=== PATIENT | female | born 1970 | race Caucasian/White ===

== ENCOUNTER → 2018-06-01 | Outpatient (CLI) | payer BC ==
--- NOTE | 2018-06-03 13:05 | MM ---
Reason for exam: screening (asymptomatic). Last mammogram was performed 5 years and 9 months ago. History: Family history of breast cancer. Physical Findings: A clinical breast exam by your physician is recommended on an annual basis and results should be correlated with mammographic findings. MG 3D Screening Mammo W/Cad Bilateral CC and MLO view(s) were taken. Prior study comparison: August 24, 2012, bilateral digital screening mammo w/CAD. July 06, 2006, bilateral screening mammogram w/CAD. The breast tissue is heterogeneously dense. This may lower the sensitivity of mammography. Finding: There are coarse heterogeneous, grouped/clustered calcifications in the upper outer quadrant, middle position of the right breast, a few calcifications were present in 2012. New finding since August 24, 2012. ASSESSMENT: Incomplete: need additional imaging evaluation, BI-RAD 0 RECOMMENDATION: Special view mammogram of the right breast. [facility] will attempt to contact patient to return for supplemental views.
== END | disposition home or self-care (01) ==
LOC: RADMAMWWP 15:06
PROVIDERS: ATTEND Obstetrics & Gynecology
DX: Z12.31 Encounter for screening mammogram for malignant neoplasm of breast (principal)
CPT/HCPCS: 77063; 77067

== ENCOUNTER → 2018-06-15 | Outpatient (CLI) | payer BC ==
--- NOTE | 2018-06-16 10:55 | MM ---
Reason for exam: additional evaluation requested from abnormal screening. Last mammogram was performed less than 1 month ago. History: Family history of breast cancer. Physical Findings: Nurse did not find any significant physical abnormalities on exam. MG 3D Work Up W/Cad RT Spot compression CC, spot compression LM, and LM view(s) were taken of the right breast. Prior study comparison: June 01, 2018, bilateral MG 3d screening mammo w/cad. August 24, 2012, bilateral digital screening mammo w/CAD. The breast tissue is heterogeneously dense. This may lower the sensitivity of mammography. Finding: There are round, linear calcifications in the outer quadrant, middle position of the right breast 4cm from the nipple. ASSESSMENT: Suspicious, BI-RAD 4 RECOMMENDATION: Stereotactic core biopsy of the right breast. Called Dr. Nash with mammographic findings and has scheduled an appointment for the patient for 06/20/18 at 11:[address] Shultz. PRELIMINARY REPORT CALLED AND FAXED TO DR. SHULTZ ON 06/15/18.
== END | disposition home or self-care (01) ==
LOC: RADMAMWWP 15:00
PROVIDERS: ATTEND Obstetrics & Gynecology
DX: R92.8 Other abnormal and inconclusive findings on diagnostic imaging of breast (principal)
CPT/HCPCS: 77061; 77065

== ENCOUNTER → 2018-07-08 | Day surgery (SDC) | payer BC ==
[2018-07-08 09:44] VITALS: RESP 16; BMI 31.0
[2018-07-08 11:33] VITALS: BP 124/71; PULSE 65; TEMP 98.1
--- NOTE | 2018-07-08 14:25 | MM ---
EXAMINATION TYPE: MG stereo VAD BX RT DATE OF EXAM: 07/08/2018 COMPARISON: 06/15/2018 CLINICAL HISTORY: Post procedure mammogram TECHNIQUE: Stereotactic guided core biopsy of right breast. FINDINGS: The procedure of stereotactic guided core biopsy was explained to the patient. Benefits, alternatives, and risks were discussed. An informed consent was then obtained. A timeout was performed The shortness pathway for biopsy was chosen. Shortness pathway was lateral approach. The procedure was targeted by radiology. The procedure was performed by radiology. The skin was cleansed. The skin and deeper breast tissue was anesthetized with 1 % lidocaine with sodium bicarbonate. 6 core samples were obtained. Specimen: Mammographic specimen contains multiple calcifications. Samples labeled and transferred to pathology for additional evaluation. Clip was placed at the biopsy site. Post procedure mammogram was obtained. Calcifications appear to be resected. Clip placement appears appropriate with the prebiopsy mammogram. The patient tolerated the procedure well without any immediate complication. Discharge instructions were discussed with the patient. The patient will follow- up with her physician for results. Patient was released in stable condition. IMPRESSION: 1. Successful stereotactic core biopsy right breast calcifications. Recommendations: 1. Recommendations are pending pathology results. Pathology Results: Benign BREAST, RIGHT, STEREOTACTIC CORE BIOPSY: Fibrocystic changes including cysts, fibrosis, sclerosing adenosis, apocrine metaplasia, and mild usual type ductal hyperplasia with intraluminal calcium oxalate crystals and rare stromal calcifications identified. Recommendation Follow up mammogram of the right breast in 6 months. SEAN
== END ==
LOC: RADMAMWWP 09:23
PROVIDERS: ATTEND Surgery
DX: N60.31 Fibrosclerosis of right breast (principal); N60.21 Fibroadenosis of right breast; N60.81 Other benign mammary dysplasias of right breast; N60.91 Unspecified benign mammary dysplasia of right breast; R92.1 Mammographic calcification found on diagnostic imaging of breast; R92.8 Other abnormal and inconclusive findings on diagnostic imaging of breast; Z88.2 Allergy status to sulfonamides
CPT/HCPCS: 88305; 19081; A4648; J2001

== ENCOUNTER → 2019-01-10 | Outpatient (CLI) | payer BC ==
--- NOTE | 2019-01-10 14:22 | MM ---
Reason for exam: follow-up at short interval from prior study. Last mammogram was performed 7 months ago. History: Family history of breast cancer in aunt. Benign MG stereo VAD BX RT of the right breast, July 08, 2018. Physical Findings: Nurse did not find any significant physical abnormalities on exam. MG 3D Diag Mammo W/Cad RT CC and MLO view(s) were taken of the right breast. Prior study comparison: June 15, 2018, right breast MG 3d work up w/cad RT. June 01, 2018, bilateral MG 3d screening mammo w/cad. The breast tissue is heterogeneously dense. This may lower the sensitivity of mammography. Previous mammotome biopsy in the right breast. No significant new findings when compared with previous films. These results were verbally communicated with the patient and result sheet given to the patient on 01/10/19. ASSESSMENT: Benign, BI-RAD 2 RECOMMENDATION: Return to routine screening mammogram schedule for both breasts. Back on schedule for May 2019.
== END | disposition home or self-care (01) ==
LOC: RADMAMWWP 13:39
PROVIDERS: ATTEND Surgery
DX: R92.8 Other abnormal and inconclusive findings on diagnostic imaging of breast (principal)
CPT/HCPCS: 77061; 77065